=== PATIENT | male | born 1990 | race Caucasian/White ===

== ENCOUNTER 2019-02-19 17:50 | Emergency (ER) | payer OTHER ==
[2019-02-19 18:05] VITALS: BP 129/79; PULSE 89; RESP 18; TEMP 98
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
[2019-02-19] MEDS ORDERED: KETOROLAC 30 MG/ML 1 ML VIAL IM STA (18:52)
[2019-02-19] MEDS ORDERED: IBUPROFEN 600 MG STARTER PACK 4 TAB BTL PO STA (19:09)
== END 2019-02-19 19:11 | disposition home or self-care (01) ==
LOC: EC 17:50
DX: S06.0X0A Concussion without loss of consciousness, initial encounter (principal); S62.604A Fracture of unspecified phalanx of right ring finger, initial encounter for closed fracture; M54.2 Cervicalgia; F31.9 Bipolar disorder, unspecified; F41.9 Anxiety disorder, unspecified; F17.200 Nicotine dependence, unspecified, uncomplicated; Z91.013 Allergy to seafood; Z79.899 Other long term (current) drug therapy; Z97.8 Presence of other specified devices; Y04.2XXA Assault by strike against or bumped into by another person, initial encounter; Y04.0XXA Assault by unarmed brawl or fight, initial encounter; Y93.89 Activity, other specified; Y92.009 Unspecified place in unspecified non-institutional (private) residence as the place of occurrence of the external cause
CPT/HCPCS: 72125; 70450; 99284; 96372; J1885

== ENCOUNTER 2019-12-26 01:55 | Emergency (ER) | payer OTHER ==
[2019-12-26 02:03] VITALS: RESP 18
[2019-12-26] MEDS ORDERED: FAMOTIDINE 20 MG/2 ML VIAL IV STA (02:19)
[2019-12-26] MEDS ORDERED: methylPREDNISolone SOD SUCCI 125 MG/2 ML VIAL IV STA (02:19)
[2019-12-26] MEDS ORDERED: diphenhydrAMINE 50 MG/ML 1 ML VIAL IVP STA (02:19)
--- NOTE | 2019-12-26 02:21 | ED ---
Allergic Reaction HPI - General Chief complaint: Allergic Reaction Stated complaint: poss allergic reaction Time Seen by Provider: 12/26/19 02:06 Source: patient Mode of arrival: ambulatory Limitations: no limitations - History of Present Illness Initial Comments: Johan is a 29-year-old male who presents ER today for possible ALLERGIC reaction. Patient reports he was in his usual state of health when he went to bed last night, he woke up and noted that his face was swollen his eyelids were swollen. He had some itching of his hands and feet. The patient denies any previous ALLERGIES aside from shrimp. He denies any exposure to strep. He denies any change in body soaps, lotions, A/, laundry detergent, moisturizers. He has never had a reaction like this in the past. - Related Data Home Medications Medication Instructions Recorded Confirmed Albuterol Inhaler ([place]hu) [Ventolin 2 puff INHALATION RT-Q6H PRN 02/19/19 02/19/19 Hfa Inhaler] Budesonide/Formoterol Fumarate 2 puff INHALATION RT-BID 02/19/19 02/19/19 [Symbicort 160-4.5 Mcg Inhaler] Calcium Carbonate [Tums] 500 mg PO BID 02/19/19 02/19/19 Cetirizine HCl [Zyrtec] 10 mg PO DAILY 02/19/19 02/19/19 Fluticasone Nasal [place] [Flonase 1 spray EA NOSTRIL DAILY 02/19/19 02/19/19 Nasal [place]] [place] Carbonate 600 mg PO BID 02/19/19 02/19/19 Polyvinyl Alcohol/Povidone [Clear 1 drop BOTH EYES DAILY PRN 02/19/19 02/19/19 Eyes Natural Tears Drop] buPROPion XL [Wellbutrin Xl] 150 mg PO DAILY 02/19/19 02/19/19 hydrOXYzine HCL 50 mg PO BID 02/19/19 02/19/19 Previous Rx's Medication Instructions Recorded Ibuprofen [Motrin] 600 mg PO Q8HR PRN #30 tab 02/19/19 EPINEPHrine [Auvi-Q] 0.3 mg IM ONCE PRN #2 pen 12/26/19 predniSONE [Deltasone] 40 mg PO DAILY 5 Days #10 tab 12/26/19 Allergies Allergy/AdvReac Type Severity Reaction Status Date / Time shrimp Allergy Swelling Verified 12/26/19 02:02 Review of Systems ROS Statement: Those systems with pertinent positive or pertinent negative responses have been documented in the HPI. ROS Other: All systems not noted in ROS Statement are negative. Past Medical History Past Medical History: No Reported History, Renal Disease Additional Past Medical History / Comment(s): HSP History of Any Multi-Drug Resistant Organisms: None Reported Past Surgical History: No Surgical Hx Reported Past Psychological History: Anxiety, Bipolar, Depression, PTSD Smoking Status: Current every day smoker Past Alcohol Use History: None Reported Past Drug Use History: Marijuana General Exam - General Exam Comments Initial Comments: Physical Exam GENERAL: Patient is well-developed and well-nourished. Patient is nontoxic and well-hydrated and is in no distress. HENT: Normocephalic, Atraumatic. Edema of face, angioedema of eyelids No angioedema of lips, tongue, soft pallette or uvula EYES: PERRL, EOMI PULMONARY: Unlabored respirations. No audible rales rhonchi or wheezing was noted. CARDIOVASCULAR: There is a regular rate and rhythm without any murmurs gallops or rubs. ABDOMEN: Soft and nontender with normal bowel sounds. SKIN: Hives on back, hands, feet : Deferred NEUROLOGIC: Patient is alert and oriented x3. Moving all extremities spontaneously MUSCULOSKELETAL: Normal extremities with adequate strength and full range of motion. No lower extremity swelling or edema. No calf tenderness. PSYCHIATRIC: Normal psychiatric evaluation. Limitations: no limitations Course Vital Signs 12/26/19 02:00 Temperature 97.7 F Pulse Rate 83 Respiratory 18 Rate Blood Pressure 118/80 O2 Sat by Pulse 98 Oximetry Medical Decision Making - Medical Decision Making The patient was seen and evaluated patient appears to be having ALLERGIC reaction to an unknown source no history of anaphylaxis in the past Solu-Medrol Benadryl and Pepcid were ordered and given Patient was reevaluated, erythema of the face and swelling is decreasing he's feeling much better Patient was observed for greater than 90 minutes he is improving, at this time patient is stable for discharge home To be prescribed 5 days of prednisone and a prescription for an EpiPen Disposition Clinical Impression: Allergic reaction Disposition: HOME SELF-CARE Condition: Stable Instructions (If sedation given, give patient instructions): General Allergic Reaction (ED) Prescriptions: EPINEPHrine [Auvi-Q] 0.3 mg IM ONCE PRN #2 pen PRN Reason: Anaphylaxis predniSONE [Deltasone] 40 mg PO DAILY 5 Days #10 tab Is patient prescribed a controlled substance at d/c from ED?: No Referrals: [facility],Clinic [Primary Care Provider] - 1-2 days
[2019-12-26 05:00] VITALS: BP 110/67; PULSE 84; TEMP 97.9
== END 2019-12-26 05:00 | disposition home or self-care (01) ==
LOC: EC 01:55
DX: T78.40XA Allergy, unspecified, initial encounter (principal); T78.3XXA Angioneurotic edema, initial encounter; F41.9 Anxiety disorder, unspecified; F31.9 Bipolar disorder, unspecified; F17.200 Nicotine dependence, unspecified, uncomplicated; Z79.899 Other long term (current) drug therapy; Z79.51 Long term (current) use of inhaled steroids; Z91.013 Allergy to seafood
CPT/HCPCS: 99283; 96374; 96375 ×2; J1200; J2930

== ENCOUNTER 2023-10-21 14:10 | Emergency (ER) | payer OTHER ==
[2023-10-21 14:25] VITALS: RESP 18
--- NOTE | 2023-10-21 15:12 | ED ---
General Adult HPI - General Chief complaint: Extremity Injury, Lower Stated complaint: Fall-L Ankle Injury Time Seen by Provider: 10/21/23 14:52 Source: patient, RN notes reviewed Mode of arrival: wheelchair Limitations: no limitations - History of Present Illness Initial comments: 33-year-old male presents to the emergency department for evaluation of left ankle injury. Patient states that he was putting the awning up on his camper when he stepped down off the picnic table bench causing his ankle to twist. He reports feeling pain to the lateral aspect of his left ankle. Admits to swelling. Denies numbness, tingling. Denies any other injury. - Related Data Home Medications Medication Instructions Recorded Confirmed Albuterol Inhaler [Ventolin Hfa 2 puff INHALATION RT-Q6H PRN 02/19/19 02/19/19 Inhaler] Budesonide/Formoterol Fumarate 2 puff INHALATION RT-BID 02/19/19 02/19/19 [Symbicort 160-4.5 Mcg Inhaler] Calcium Carbonate [Tums] 500 mg PO BID 02/19/19 02/19/19 Cetirizine HCl [Zyrtec] 10 mg PO DAILY 02/19/19 02/19/19 Fluticasone Nasal [place] [Flonase 1 spray EA NOSTRIL DAILY 02/19/19 02/19/19 Nasal [place]] [place] Carbonate 600 mg PO BID 02/19/19 02/19/19 Polyvinyl Alcohol/Povidone [Clear 1 drop BOTH EYES DAILY PRN 02/19/19 02/19/19 Eyes Natural Tears Drop] buPROPion XL [Wellbutrin Xl] 150 mg PO DAILY 02/19/19 02/19/19 hydrOXYzine HCL 50 mg PO BID 02/19/19 02/19/19 Previous Rx's Medication Instructions Recorded Ibuprofen [Motrin] 600 mg PO Q8HR PRN #30 tab 02/19/19 EPINEPHrine [Auvi-Q] 0.3 mg IM ONCE PRN #2 pen 12/26/19 predniSONE [Deltasone] 40 mg PO DAILY 5 Days #10 tab 12/26/19 Lidocaine 5% Patch [Lidoderm 5% 1 patch TOPICAL DAILY PRN #7 patch 12/15/22 Patch] Acetaminophen-Codeine 300-30mg 1 tab PO Q4H PRN #18 tablet 10/21/23 [Tylenol #3] Allergies Allergy/AdvReac Type Severity Reaction Status Date / Time shrimp Allergy Swelling Verified 10/21/23 14:25 Review of Systems ROS Statement: Those systems with pertinent positive or pertinent negative responses have been documented in the HPI. ROS Other: All systems not noted in ROS Statement are negative. Past Medical History Past Medical History: No Reported History, Renal Disease Additional Past Medical History / Comment(s): HSP History of Any Multi-Drug Resistant Organisms: None Reported Past Surgical History: No Surgical Hx Reported Past Psychological History: Anxiety, Bipolar, Depression, PTSD Smoking Status: Current every day smoker Past Alcohol Use History: Rare Past Drug Use History: Marijuana General Exam Limitations: no limitations General appearance: alert, in no apparent distress Head exam: Present: atraumatic, normocephalic, normal inspection Eye exam: Present: normal appearance, PERRL, EOMI. Absent: scleral icterus, conjunctival injection, periorbital swelling ENT exam: Present: normal exam, mucous membranes moist Respiratory exam: Present: normal lung sounds bilaterally. Absent: respiratory distress, wheezes, rales, rhonchi, stridor Cardiovascular Exam: Present: regular rate, normal rhythm, normal heart sounds. Absent: systolic murmur, diastolic murmur, rubs, gallop, clicks Extremities exam: Present: tenderness (lateral left ankle), normal capillary refill, other (DP and PT pulses 2+). Absent: full ROM, pedal edema, joint swelling, calf tenderness Neurological exam: Present: alert, oriented X3 Psychiatric exam: Present: normal affect, normal mood Skin exam: Present: warm, dry, intact, normal color. Absent: rash Course Vital Signs 10/21/23 10/21/23 10/21/23 14:23 16:25 17:45 Temperature 98.0 F 98.1 F 98.1 F Pulse Rate 73 76 77 Respiratory 18 18 18 Rate Blood Pressure 121/72 114/68 118/79 O2 Sat by Pulse 98 99 99 Oximetry Medical Decision Making - Medical Decision Making Was pt. sent in by a medical professional or institution (, PA, SALES TRAINER, urgent care, hospital, or [facility]...) When possible be specific @ -No Did you speak to anyone other than the patient for history (EMS, parent, family, police, friend...)? What history was obtained from this source @ -No Did you review nursing and triage notes (agree or disagree)? Why? @ -I reviewed and agree with nursing and triage notes Were old charts reviewed (outside hosp., previous admission, EMS record, old EKG, old radiological studies, urgent care reports/EKG's, [facility] records)? Report findings @ -No old charts were reviewed Differential Diagnosis (chest pain, altered mental status, abdominal pain women, abdominal pain men, vaginal bleeding, weakness, fever, dyspnea, syncope, headache, dizziness, GI bleed, back pain, seizure, CVA, palpatations, mental health, musculoskeletal)? @ -Differential Musculoskeletal Muscular strain, contusion, ligament sprain, fracture, arthritis, septic arthri tis, bursitis, cellulitis, muscle spasm, nerve compression, DVT, arterial occlusion, herpes zoster, electrolyte abnormality, tumor.... This is not meant to be in all inclusive list EKG interpreted by me (3pts min.). @ -None X-rays interpreted by me (1pt min.). @ -XR of the left ankle shows evidence of old injury with acute soft tissue swelling CT interpreted by me (1pt min.). @ -None done U/S interpreted by me (1pt. min.). @ -None done What testing was considered but not performed or refused? (CT, X-rays, U/S, labs)? Why? @ -None What meds were considered but not given or refused? Why? @ -None Did you discuss the management of the patient with other professionals (professionals i.e. , PA, SALES TRAINER, lab, RT, psych nurse, social security benefits interviewer, home appliance washing machine mechanic, teacher, global chief creative officer, rn case mgr)? Give summary @ -No Was smoking cessation discussed for >3mins.? @ -No Was critical care preformed (if so, how long)? @ -No Were there social determinants of health that impacted care today? How? (Homel essness, low income, unemployed, alcoholism, drug addiction, transportation, low edu. Level, literacy, decrease access to med. care, fpc, rehab)? @ -No Was there de-escalation of care discussed even if they declined (Discuss DNR or withdrawal of care, Hospice)? DNR status @ -No What co-morbidities impacted this encounter? (DM, HTN, Smoking, COPD, CAD, Cancer, CVA, ARF, Chemo, Hep., AIDS, mental health diagnosis, sleep apnea, morbid obesity)? @ -None Was patient admitted / discharged? Hospital course, mention meds given and route, prescriptions, significant lab abnormalities, going to OR and other pertinent info. @ -Discharged. Patient presented to the emergency department for evaluation of left ankle injury. XR obtained which shows Bony spurring and corticated density at the lateral malleolus suggesting old injury, lateral sided soft tissue swelling which could represent a superimposed acute ligamentous injury. Patient was provided medication for pain control while in the ED. Patient is Aircast and provided crutches. Advised to follow-up with orthopedics. He is understanding and agreeable with this plan. Patient stable at time of discharge. Case discussed with Dr. East Undiagnosed new problem with uncertain prognosis? @ -No Drug Therapy requiring intensive monitoring for toxicity (Heparin, Nitro, Insulin, Cardizem)? @ -No Were any procedures done? @ -No Diagnosis/symptom? @ -Left ankle sprain Acute, or Chronic, or Acute on Chronic? @ -Acute Uncomplicated (without systemic symptoms) or Complicated (systemic symptoms)? @ -Uncomplicated Side effects of treatment? @ -No Exacerbation, Progression, or Severe Exacerbation? @ -No Poses a threat to life or bodily function? How? (Chest pain, [place], [place], pneumonia, PE, COPD, DKA, ARF, appy, cholecystitis, CVA, Diverticulitis, Homicidal, Suicidal, threat to staff... and all critical care pts) @ -No Disposition Clinical Impression: Left ankle sprain Disposition: HOME SELF-CARE Condition: Stable Instructions (If sedation given, give patient instructions): Ankle Sprain (ED) Additional Instructions: Please follow up with orthopedics. Rest, ice, elevate the foot and ankle. Utilize Motrin with the Tylenol #3. Return to the emergency department with new or worsening symptoms. Prescriptions: Acetaminophen-Codeine 300-30mg [Tylenol #3] 1 tab PO Q4H PRN #18 tablet PRN Reason: pain Is patient prescribed a controlled substance at d/c from ED?: No Referrals: [facility],Clinic [Primary Care Provider] - 1-2 days Bebo Burns MD [Medical Doctor] - 1-2 days
[2023-10-21] MEDS: KETOROLAC 15 MG/ML 1 ML VIAL IM STA (15:36)
[2023-10-21] MEDS: HYDROmorphone 0.5 MG/0.5 ML SYRINGE IM STA (16:32)
[2023-10-21 16:36] VITALS: TEMP 98.1
--- NOTE | 2023-10-21 17:02 | XR ---
EXAMINATION TYPE: XR ankle complete 3 views LT DATE OF EXAM: 10/21/2023 Comparison: None Clinical History: 33-year-old male twisting injury Findings: Lateral malleolar soft tissue swelling. Ankle mortise is congruent. Preservation of the distal tibiof ibular overlap. Talar dome is intact. Some bony spurring at the inferior tip of the lateral malleolus with a small corticated density suggesting sequela of old injury. No acute fracture, subluxation, di slocation is seen. Impression: Some bony spurring and corticated density at the lateral malleolus suggesting sequela of old injury. However, there is also lateral sided soft tissue swelling that could represent a superimposed acute l igamentous injury. Clinically correlate.
[2023-10-21 18:01] VITALS: BP 118/79; PULSE 77
== END 2023-10-21 18:02 | disposition home or self-care (01) ==
LOC: EC 14:10
DX: S93.402A Sprain of unspecified ligament of left ankle, initial encounter (principal); F17.200 Nicotine dependence, unspecified, uncomplicated; F12.90 Cannabis use, unspecified, uncomplicated; Z91.018 Allergy to other foods; X50.1XXA Overexertion from prolonged static or awkward postures, initial encounter
CPT/HCPCS: 73610; 99283; 96372 ×2; L4350; J1885; J1170